=== PATIENT | female | born 1980 | race Caucasian/White ===

== ENCOUNTER 2023-09-23 08:11 | Emergency (ER) | payer BC, SELFPAY ==
--- NOTE | 2023-09-23 08:12 | ED.URI ---
HPI - URI/Sore Throat General Chief Complaint: Upper Respiratory Infection Stated Complaint: Headache, Neck Pain, Fever, Diarrhea, Chills Time Seen by Provider: 09/23/23 08:12 Source: patient Mode of arrival: ambulatory Limitations: no limitations History of Present Illness HPI Narrative: Patient is a 43-year-old female that presents with headache, neck pain, fever, diarrhea and chills since Tuesday. Patient states max ear of 102. Patient has taken [id number] medications with no relief. Patient states headache is only present when she is upright. Denies any neck stiffness. Reports abdominal cramping diarrhea every 2 hours. Denies any blood or mucus with diarrhea. Reports last emesis episode was 6:00 a.m.. Has done 2 at home COVID test that were both negative. Related Data Allergies Allergy/AdvReac Type Severity Reaction Status Date / Time No Known Allergies Allergy Verified 09/23/23 08:14 Review of Systems Review of Systems: All systems reviewed & are unremarkable except as noted in HPI and below Constitutional: Constitutional: Denies body ache(s), Reports chills, Denies fatigue, Reports fever(s), Reports headache(s), Denies malaise and Denies weakness Eyes: Eyes: Denies blurry vision, Denies itchy eyes and Denies loss of vision ENT: Denies otalgia, Reports headache(s), Denies nasal congestion, Reports neck pain, Denies sinus pain and Denies sore throat Cardiovascular: Cardiovascular: Denies chest pain, Denies irregular heart rhythm and Denies dyspnea Respiratory: Respiratory: Denies cough and Denies dyspnea Gastrointestinal: Gastrointestinal: Reports abdominal pain, Reports diarrhea, Reports nausea and Reports vomiting Musculoskeletal: Musculoskeletal: Denies back pain, Denies myalgias and Denies arthralgias Integumentary/Breasts: Skin/Breast: Denies pruritus and Denies rash Neurologic: Denies headache(s), Denies loss of vision and Denies weakness Psychiatric: Psychiatric: Reports no additional psychiatric complaints Endocrine: Endocrine: Denies fatigue Allergic/Immunologic: Allergic/Immunologic: Denies itchy eyes PMFSH Comments At time of signature, agree with nursing past medical, surgical, social and family history. There is no relevant family history pertinent to the presenting complaint. Exam Const: General: cooperative, healthy appearing, comfortable, no acute distress and well nourished Nutritional Appearance: well nourished Orientation/consciousness: patient oriented x3 Limitations: no limitations HENMT: Head: normal to inspection, normocephalic and atraumatic Ears: hearing grossly normal bilaterally, external ears normal, TM's normal bilaterally, EAC's normal and no periauricular adenopathy Face/Nose/Sinus: Normal external nose present, Normal nasal mucous membranes and turbinates present, normal facial exam, sinuses nontender and face symmetric Face and sinus: normal facial exam, sinuses nontender and face symmetric Mouth: Yes Normal oral and palatal mucosa present, Yes lip normal, Yes tongue normal, Yes Normal salivary glands and ducts present, Yes oropharynx normal and Yes moist mucous membranes Teeth and gingiva: dentition normal Throat: posterior oropharynx normal, uvula midline and tonsils absent Eyes: General: appearance normal, both eyes and all related structures Alignment and Position: alignment normal and position normal Periorbital: periorbital findings normal Eyelids: eyelids normal Pupils: Equal, round and reactive pupils present Neck: Neck: normal visual inspection, full ROM, no lymphadenopathy, supple, negative Brudzinski's sign and negative Kernig's sign Chest: Chest palpation & inspection: normal inspection of the chest and normal palpation of entire chest wall Resp: Effort & Inspection: normal respiratory effort and able to speak in complete sentences Auscultation: clear to auscultation bilaterally, no crackles, no rales, no rhonchi and no wheezes Cardio: Rate: regula
[2023-09-23 08:25] VITALS: BP 125/87; PULSE 113; RESP 18; TEMP 36.3; O2SAT 100
== END 2023-09-23 08:57 | disposition home or self-care (01) ==
PROVIDERS: Emergency Provider Nurse Practitioner Family
DX: K52.9 Noninfective gastroenteritis and colitis, unspecified (principal); K21.9 Gastro-esophageal reflux disease without esophagitis; Z86.16 Personal history of COVID-19
CPT/HCPCS: 87804; 99213; G0463

== ENCOUNTER 2024-04-05 08:50 | Emergency (ER) | payer BC, SELFPAY ==
--- NOTE | ~2024-04-05 | XR_ITS ---
Clinical Indication: Cough PA and lateral views of the chest: Comparison: 12/06/2018 Findings: The lungs are clear, without evidence of focal consolidation or pleural effusion. Cardiome diastinal silhouette is within normal limits. Bones and soft tissues are unremarkable. Impression: Normal chest. Reviewed, dictated and finalized at [facility]. Impression: Normal chest.
[2024-04-05 08:56] VITALS: BP 132/80; PULSE 93; RESP 20; TEMP 36; O2SAT 96
[2024-04-05 09:01] VITALS: BP 132/80; PULSE 93; RESP 20; TEMP 36; O2SAT 96
--- NOTE | 2024-04-05 09:02 | ED.URI ---
HPI - URI/Sore Throat General Chief Complaint: Upper Respiratory Infection Stated Complaint: cough Time Seen by Provider: 04/05/24 09:00 Source: patient Mode of arrival: ambulatory Limitations: no limitations History of Present Illness HPI Narrative: 44 y/o female presented for c/o productive cough x11 days. Endorses associated pain to the left mid chest and sob when coughing, vomiting from the forceful cough, and headache. Denies n/v/d/f/c. Taking multiple otc meds without relief. Of note, Pt was seen in ER for GI symptoms 5 days ago. Related Data Allergies Allergy/AdvReac Type Severity Reaction Status Date / Time No Known Allergies Allergy Verified 04/05/24 09:00 Review of Systems Review of Systems: CONSTITUTIONAL: Denies body aches, fever, chills, or sweats. EYES: Denies visual changes, redness, or discharge. ENT: Denies rhinorrhea, congestion, sore throat, or otalgia. CARDIOVASCULAR: Denies chest pain, palpitations, or edema. RESPIRATORY: Reports cough, denies wheezing. GASTROINTESTINAL: Denies abdominal pain, nausea, vomiting, or diarrhea. MUSCULOSKELETAL: Denies back pain, joint pain, or myalgia. NEUROLOGIC: Denies headache, numbness, tingling, or weakness. All systems reviewed & are unremarkable except as noted in HPI and below PMFSH Comments At time of signature, I have reviewed and agree with nursing past medical, surgical, social and family history unless otherwise noted. Please see nursing chart for further information. There is no relevant family history pertinent to the presenting complaint Exam Narrative: GENERAL: midly ill-appearing, in no acute distress. EYES: EOMI. No redness or drainage. Conjunctivae normal. ENT: Mucous membranes pink and moist. No rhinorrhea. TMs normal bilaterally. Throat normal. Uvula midline. NECK: Normal AROM. Supple. CHEST: No respiratory distress. Left anterior wheezing otherwise clear to all thomas. Frequent cough. HEART: Regular rate and rhythm. No murmur appreciated. SKIN: Warm, dry, no rash. Capillary refill normal. Normal skin turgor. NEURO: Alert and oriented x3. Gait steady. Course Course Emergency Course: Patient is aware of diagnosis, understands and agrees to treatment plan. Anticipatory guidance given. Patient agrees to follow-up as directed and is aware of reasons to seek care at the emergency department. Portions of this record may have been created with voice recognition software Level of Care: Express Care Visit Vital Signs Vital signs: Vital Signs Temperature 96.8 F L 04/05/24 08:56 Pulse Rate 93 04/05/24 08:56 Respiratory Rate 20 04/05/24 08:56 Blood Pressure 132/80 04/05/24 08:56 Pulse Oximetry 96 04/05/24 08:56 Oxygen Delivery Room Air 04/05/24 08:56 Temperature 96.8 F L 04/05/24 09:01 Pulse Rate 93 04/05/24 09:01 Respiratory Rate 20 04/05/24 09:01 Blood Pressure 132/80 04/05/24 09:01 Pulse Oximetry 96 04/05/24 09:01 Oxygen Delivery Room Air 04/05/24 09:01 MDM - URI/Sore Throat MDM Narrative Medical decision making narrative: Results of chest x-ray reviewed with patient. Discussed physical exam findings. Reviewed Rxs. Advised supportive measures and signs/symptoms to go to the ER. Pt is appropriate for outpt treatment and f/u. Differential Diagnosis Differential diagnosis: Likely upper respiratory infection, sinusitis, viral infection, bronchitis and other Imaging Data Radiologist's impression: Patient: Cora Sherman : 1980 MR#: [id number] Age: 44 Acct:[id number] Loc: [facility] ADM Date: 04/05/24Attending Dr: Ordering Physician: Hailey Echeverria APRN Date of Service: 04/05/24 Procedure(s): XR chest 2V Accession Number(s): [id number] cc: Hailey Echeverria APRN; Vickie, Angélica CAMACHO~ Clinical Indication: Cough PA and lateral views of the chest: Comparison: 12/06/2018 Findings: The lungs are clear, without evidence of focal consolidat
== END 2024-04-05 09:42 | disposition home or self-care (01) ==
PROVIDERS: Emergency Provider Nurse Practitioner Family; PCP Physician Assistant
DX: J40 Bronchitis, not specified as acute or chronic (principal); K21.9 Gastro-esophageal reflux disease without esophagitis; M32.9 Systemic lupus erythematosus, unspecified; Z86.16 Personal history of COVID-19
CPT/HCPCS: 71046; 99213; G0463

== ENCOUNTER 2025-03-05 08:16 | Emergency (ER) | payer BC, SELFPAY ==
--- OUTSIDE RECORDS SUMMARY | 2025-03-05 08:20 | XMS_ITS | Clinical Summary ---
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 Gender Identity Not on file Sexual Orientation Not on file Plan of Treatment Health Maintenance Due Date Last Done Comments Hepatitis C Virus (HCV) Screening 1980 TdaP Immunization 1980 Hepatitis B Immunization (1 of 3 - 19+ 3-dose series) 02/25/1999 Pap Smear 02/25/2001 Human Papillomavirus (HPV) Immunization (1 - 3-dose SCDM series) 02/25/2007 Cervical Cancer Screening (CCS) 02/25/2010 HPV/Cotest 02/25/2010 SARS-COV-2 Immunization ( season) 2024 11/24/2020, 11/03/2020 Cologuard 02/25/2025 Immunochemical Fecal Occult Blood 02/25/2025 Influenza Immunization (#1) 2025 Colonoscopy 09/21/2028 09/21/2018 Colorectal Cancer Screening 09/21/2028 Respiratory Syncytial Virus (RSV) Immunization (Adult) (1 - 1-dose 75+ series) 02/25/2055 Meningococcal Immunization (ACWY) Aged Out No longer eligible b ased on patient's age to complete this topic Pneumococcal Immunization Combined Aged Out No longer eligible b ased on patient's age to complete this topic Rotavirus Immunization Aged Out No lo nger eligible based on patient's age to complete this topic Procedures Procedure Name Priority Date/Time Associated Diagnosis Comments COLONOSCOPY Routine 09/21/2018 from Last 3 Months or Most Recently Relevant to Health Maintenance Results * COLONOSCOPY (09/21/2018) Pako Padilla DO PROCEDURE/MINOR SURGICAL ORDERA BLES Final Result from Last 3 Months or Most Recently Relevant to Health Maintenance Insurance [facility] Care Teams Farm Technician Relationship Specialty Start Date End Date Provider, Unknown UNKNOWN PCP - General 09/28/18
--- OUTSIDE RECORDS SUMMARY | 2025-03-05 08:20 | XMS_ITS | Clinical Summary ---
Author Organization [place] [id number] [facility] Address [address] [place] [phone] Phone Care Team Providers Care High Man Name Role Phone Angélica Johnston Primary Care Pr ovider Jairo CHAVEZ MD, Dayne Vance [phone] Allergies No known active allergies Medications cetirizine (ZyrTEC) 10 mg capsule Zyrtec PRN Active pantoprazole DR (PROTONIX) 40 mg EC tablet TK 1 T PO QAM 2 11/06/2018 Active buPROPion SR (WELLBUTRIN SR) 100 mg 12 hr tablet Take 100 mg by mouth 2 (two) times a day Active celecoxib (CeleBREX) 200 mg capsule Take 1 capsule (200 mg total) by mouth daily 30 capsule 1 12/13/2018 Active Active Problems Problem Noted Date Diagnosed Date Pain of right hip joint 01/05/2019 Assessment & Plan (01/05/2019 12:05 PM CDT): Patient primarily presenting due to significantly increased pain in the right lateral hip, which has been keeping her up at night. Patient states that she has been using exercise sheet given at last visit regularly, which has not provided benefit. Notable TTP over the right greater trochanter. Appears most compatible with greater trochanteric pain syndrome, although osteoarthritis may be contributing mildly as well. Will order ultrasound-guided right hip Kenalog injection. Patient advised of the risks and benefits of the procedure. Seen with Dr. Gill. Follow-up 4 weeks. Sooner if needed. Bilateral hip pain 12/13/2018 Assessment & Plan (12/13/2018 4:38 PM CDT): Patient notes bilateral lateral hip pain, as well as pain which radiates into the groin. Recent bilateral hip x-ray displayed mild OA. Does also have tenderness to palpation over the bilateral greater trochanter suspicious for greater trochanteric bursitis. Given exercise sheet to do at home. If symptoms persist, consider ultrasound-guided kenalog injection. Polyarthralgia 11/23/2018 Overview (12/12/2018): X-ray 12/06/2018: CXR: Negative; left foot: Mild OA; right foot: Negative; left/right hand: Negative; bilateral hips: Mild hip OA; US 12/01/2018: 1) Mild 2nd and 3rd PIP synovial thickening on examination which will have to be correlated clinically. ALT 30; Positive MATTHEW by dominick only, positive C1 Q, positive PS PT on [facility] Prior blood work which did display positive MATTHEW, low positive ds DNA with subsequent future testing which displayed negative MATTHEW, low positive ds DNA. Patient notes joint pain, swelling which is most predominant in the right thumb/CMC region over the palmar aspect which shooting pains at times in the right lateral epicondyle, as well as pain in the bilateral ankles (L>R) (history of left ankle fracture x3), plantar fascia pain, as well as bilateral hip/groin pain and lesser degree in the remaining joints of the hands. Symptoms are best in the morning do worsen with activity. History of hair loss along the free with the face, malar redness across the face, which is worsened with the sun, eye photosensitivity, paresthesias in the hands at night, dyspnea with minimal exertion less than 1 flight of stairs, all of which are unknown significance. Swelling with tenderness is present across several joints of the bilateral hands. Patient does possess several symptoms and serologies which are concerning for connective tissue disease, including SLE. Also cannot rule out other inflammatory arthritis, such as spondyloarthritis or rheumatoid arthritis at this time. Will further evaluate with appropriate serologies, radiographs, as well as right hand ultrasound. Assessment & Plan (01/05/2019 12:05 PM CDT): Patient notes overall improvement of joint pain, stiffness, swell as swelling in the remaining joints of the hands, ankle/feet since beginning the Celebrex medication. No obvious peripheral synovitis. Will continue Celebrex 200 mg q.d.. Assessment & Plan (12/13/2018 4:31 PM CDT): Patient continues to note joint pain, swelling which is most predominant in the right thumb thenar aspect over the CMC region, bilateral ankles (L>R) (history of left ankle fracture x3), plantar fascia pain, as well as bilateral lateral hip/groin pain. Symptoms best in the morning and do improve with activity. Recent serologies displayed a positive MATTHEW by Dominick only, low positive C1 Q, positive PS PT, but were otherwise unremarkable. Right hand ultrasound did not display any significant inflammatory changes. Bilateral hip x-rays did display some mild osteoarthritis. At this time, do not see any obvious evidence support inflammatory arthritis and/or connective tissue disease. With that said, given her recent ambiguous serologies, early development for inflammatory arthritis and/or connective tissue disease she does fairly remain possible and will continue to monitor for this. We will begin treatment with Celebrex 200 mg q.d. Given her history of GERD symptoms for additional GI protection. Discussed side effects of the medication, including but not limited to GI upset, kidney, and ulcers. Follow-up 4 weeks. Sooner if needed. Seen with Dr. Gill. Assessment & Plan (11/23/2018 5:24 PM CDT): Prior blood work which did display positive MATTHEW, low positive ds DNA with subsequent future testing which displayed negative MATTHEW, low positive ds DNA. Patient notes joint pain, swelling which is most predominant in the right thumb/CMC region over the palmar aspect which shooting pains at times in the right lateral epicondyle, as well as pain in the bilateral ankles (L>R) (history of left ankle fracture x3), plantar fascia pain, as well as bilateral hip/groin pain and lesser degree in the remaining joints of the hands. Symptoms are best in the morning do worsen with activity. History of hair loss along the free with the face, malar redness across the face, which is worsened with the sun, eye photosensitivity, paresthesias in the hands at night, dyspnea with minimal exertion less than 1 flight of stairs, all of which are unknown significance. Swelling with tenderness is present across several joints of the bilateral hands. Patient does possess several symptoms and serologies which are concerning for connective tissue disease, including SLE. Also cannot rule out other inflammatory arthritis, such as spondyloarthritis or rheumatoid arthritis at this time. Will further evaluate with appropriate serologies, radiographs, as well as right hand ultrasound. Follow-up 2 weeks. Sooner if needed. Seen with Dr. Gill. Dyspnea on exertion 11/23/2018 Assessment & Plan (12/13/2018 4:37 PM CDT): Negative cxr. Advised to discuss further with PCP. Assessment & Plan (11/23/2018 5:25 PM CDT): Will check cxr to ensure no ild. May need to follow up with pcp to discuss further and consider possible evaluation with pulmonology. Paresthesias 11/23/2018 Assessment & Plan (12/13/2018 4:36 PM CDT): Intermittent paresthesias in the bilateral hands exacerbated at night. Advised wrist bracing at night. Patient was also advised that she should be further evaluated with neurology, although will discuss with pcp for recommendations. Assessment & Plan (11/23/2018 5:26 PM CDT): Paresthesias in the bilateral hands at night. Will check ultrasound for enlarged median nerve. Consider EMG at next visit. Social History Tobacco Use Types Packs/Day Years Used Date Smoking Tobacco: Never Assessed Comments Unknown Sex and Gender Information Value Date Recorded Sex Assigned at Not on file Legal Sex Female 2:49 PM CDT Gender Identity Not on file Sexual Orientation Not on file Obstetrics History Last Filed Vital Signs Vital Sign Reading Time Taken Comments Blood Pressure 130/74 01/05/2019 11:03 AM CDT Pulse 76 01/05/2019 11:03 AM CDT Temperature - - Respiratory Rate - - Oxygen Saturation - - Inhaled Oxygen Concentration - - Weight 107 kg (236 lb) 01/05/2019 11:03 AM CDT Height - - Body Mass Index - - Plan of Treatment Not on file Insurance [employer] Care Teams High Man Relationship Specialty Start Date End Date Angélica Johnston PA PCP - General Physician Toy Painter 11/07/18 Dayne Gill III, MD [address] [place] [address] Consulting Physician Rheumatology 11/07/18
--- OUTSIDE RECORDS SUMMARY | 2025-03-05 08:20 | XMS_ITS | Referral Summary ---
Author Organization [place] [id number] [facility] Address [address] [place] [phone] Phone Care Team Providers Care Esthetician Makeup Artist Name Role Phone Angélica Johnston Primary Care Pr ovider Jairo CHAVEZ MD, Dayne Vance [phone] Allergies No known active allergies Medications cetirizine [...] correlated clinically. ALT 30; Positive MATTHEW by almita only, positive C1 Q, positive PS PT [...] Recent serologies displayed a positive MATTHEW by Almita only, low positive C1 Q, positive PS [...] on file Sexual Orientation Not on file Last Filed Vital Signs Vital Sign Reading Time Taken Comments Blood Pressure 130/74 01/05/2019 11:03 AM CDT Pulse 76 01/05/2019 11:03 AM CDT Temperature - - Respiratory Rate - - Oxygen Saturation - - Inhaled Oxygen Concentration - - Weight 107 kg (236 lb) 01/05/2019 11:03 AM CDT Height - - Body Mass Index - - Plan of Treatment Not on file Insurance [employer] Care Teams Esthetician Makeup Artist Relationship Specialty Start Date End Date Angélica Johnston PA PCP - General Physician Warehouse Hand 11/07/18 Dayne Gill III, MD [address] [place] [address] Consulting Physician Rheumatology 11/07/18
--- OUTSIDE RECORDS SUMMARY | 2025-03-05 08:20 | XMS_ITS | Encounter Summary ---
Author Organization [facility] Address [address] [place] [id number] Care Team Providers Care Book Shelver Name Role Phone Leola Gannon MD Primary Care Provider [phone] Angélica Johnston Primary Care Provider [phone] Encounter Details Date Type Department Care Team (Late st Contact Info) Description 03/15/2016 Abstract [facility] CONVERSION [address] [place] [address] , Generic ConversionMD Social History Tobacco Use Types Packs/Day Years Used Date Smoking Tobacco: Never Assessed Comments Unknown Sex and Gender Information Value Date Recorded Sex Assigned at Female 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
--- OUTSIDE RECORDS SUMMARY | 2025-03-05 08:20 | XMS_ITS | Clinical Summary ---
Author Organization [facility] Address [address] [place] [id number] Care Team Providers Care Teacher Hearing Impaired Name Role Phone Angélica Johnston Primary Care Provider [phone] Allergies No known active allergies Medications pantoprazole EC 40 MG tablet Take 1 tablet (40 mg total) by mouth daily before supper. Active HYDROcodone-acetami nophen 5-325 MG tabletIndications:A cute Pain < 3 Day Supply,Acute Pain < 7 Day Supply Take 1-2 tablets by mouth every 6 (six) hours as needed for Pain. Indications: Acute Pain < 3 Day Supply, Acute Pain < 7 Day Supply 24 tablet 1 Active dicyclomine (BENTYL) 20 MG tablet Take 1 tablet (20 mg total) by mouth every 6 (six) hours as needed (abd pain or cramping). 20 tablet 4 Active ondansetron (ZOFRAN-ODT) 4 MG disintegrating tablet Take 1 tablet (4 mg total) by mouth every 6 (six) hours as needed for Nausea. 20 tablet 4 Active Active Problems Problem Noted Date Diagnosed Date Perirectal abscess 06/22/2021 Social History Tobacco Use Types Packs/Day Years Used Date Smoking Tobacco: Some Days Cigarettes Smokeless Tobacco: Never Tobacco Cessation:Counseling Given: Yes Comments:Only when I drink Alcohol Use Standard Drinks/Week Comments Yes 10 (1 standard drink = 0.6 oz pu re alcohol) Education Answer Date Recorded What is the highest level of school you have completed or the highest degree you have received? 12th grade 06/23/2021 Comments No Sex and Gender Information Value Date Recorded Sex Assigned at Female 06/23/2021 12:43 AM MACHINE LEARNING INTERN Legal Sex Female 7:09 PM CDT Gender Identity Female 06/23/2021 12:43 AM MACHINE LEARNING INTERN Sexual Orientation Straight 06/23/2021 12 :43 AM MACHINE LEARNING INTERN Last Filed Vital Signs Vital Sign Reading Time Taken Comments Blood Pressure 126/66 03/31/2024 12:24 PM CDT Pulse 89 03/31/2024 12:24 PM CDT Temperature 37.2 C (98.9 F) 03/31/2024 12:24 PM CDT Respiratory Rate 18 03/31/2024 12:24 PM CDT Oxygen Saturation 98% 03/31/2024 12:24 PM CDT Inhaled Oxygen Concentration - - Weight 105.7 kg (233 lb) 03/31/2024 10:05 AM CDT Height 165.1 cm (5' 5) 03/31/2024 10:05 AM CDT Body Mass Index 38.77 03/31/2024 10:05 AM CDT Plan of Treatment Health Maintenance Due Date Last Done Comments Cervical Cancer Screening Pa p Smear (Age 30 to 64) Every 3 Years 1980 Annual Physical 02/25/1983 Hepatitis C 02/25/1998 DTaP, Tdap and Td Vaccines ( 1 - Tdap) 02/25/1999 Hepatitis B Vaccines (1 of 3 - 19+ 3-dose series) 02/25/1999 Pneumococcal Vaccine: Pediatrics (0 to 5 Years) and At-Risk Patients (6 to 49 Years) (1 of 2 - PCV) 02/25/1999 HPV Vaccines (1 - 3-dose SCD M series) 02/25/2007 Cervical Cancer Screening Pa p with HPV Testing (Age 30 to 64) Every 5 Years 02/25/2010 Cervical Cancer Screening wi th HPV 02/25/2010 Mammogram Screening 2020 COVID-19 Vaccine (3 - 2023-2 5 season) 2024 11/24/2020, 11/03/2020 Meningococcal B Vaccine Aged Out No l onger eligible based on patient's age to complete this topic Meningococcal Vaccine Aged Out No jeet darling eligible based on patient's age to complete this topic RSV Immunizations Under 20 Months Aged Out No longer eligible b ased on patient's age to complete this topic Goals Goal Patient Goal Type Associated Problems Recent Progress Patient-Stated? Author Health - patient able to perform ADLs independently General No Mallory Hartmann, RN Insurance [facility] [place] Advance Directives * Full Code (Latest Code Status on File) Date Activated Date Inactivated Comments 06/22/2021 11:45 PM 06/23/2021 4:41 PM Care Teams Teacher Hearing Impaired Relationship Specialty Start Date End Date Angélica Johnston PA PCP - General PHYSICIAN STENCILING MACHINE TENDER 06/22/21
[2025-03-05 08:25] VITALS: BP 119/80; PULSE 71; RESP 16; TEMP 36.3; O2SAT 100
--- NOTE | 2025-03-05 08:43 | ED.URI ---
HPI - URI/Sore Throat General Chief Complaint: Upper Respiratory Infection Stated Complaint: Fever / Vomiting Time Seen by Provider: 03/05/25 08:45 Source: patient and RN notes reviewed Mode of arrival: ambulatory Limitations: no limitations History of Present Illness HPI Narrative: 45-year-old female presents with concern for hoarse voice, sore throat and throat ?swelling? for 7 days. Reports in the last 3 days she started having nausea, vomiting, fever, and chills. She had diarrhea today. She has been taking [id number] medications such as cold medicines, been using tea and cough drops without relief. She reports she usually vomits in the morning, today she has vomited several times. She denies abdominal pain. MD elicited complaint: fever and sore throat Related Data Allergies Allergy/AdvReac Type Severity Reaction Status Date / Time No Known Allergies Allergy Verified 03/05/25 08:31 Review of Systems Review of Systems: CONSTITUTIONAL: Reports malaise, chills, fever. EYES: Denies visual changes, redness, or discharge. ENT: Denies rhinorrhea, congestion, sinus pain, otalgia. Reports sore throat. CARDIOVASCULAR: Denies chest pain, palpitations, or edema. RESPIRATORY: Denies cough. Denies dyspnea. GASTROINTESTINAL: Denies abdominal pain. Reports nausea, vomiting, diarrhea SKIN: Denies rash or itching. MUSCULOSKELETAL: Denies myalgia. NEUROLOGIC: Denies headache. All systems reviewed & are unremarkable except as noted in HPI and below [facility] Comments At time of signature, agree with nursing past medical, surgical, social and family history. There is no relevant family history pertinent to the presenting complaint Exam Narrative: GENERAL: Nontoxic-appearing and in no acute distress. HEAD: Normocephalic EYES: PERRLA, conjunctivae clear ENT: Nares clear. Mucous membranes moist. TM pearly james with dull light reflex bilaterally; no tragal tenderness. Oropharynx erythematous without lesions. Tonsils not enlarged and without exudate, no drooling, no hoarseness, no trismus, uvula midline. NECK: Supple. No lymphadenopathy CHEST: Clear to auscultation, breath sounds equal. No wheezing, rhonchi, rales, or stridor. No respiratory distress, speaks in full sentences. HEART: Regular rate and rhythm. No murmur heard. ABD: Soft, nontender, normal bowel sounds SKIN: Warm, dry, no rash. NEURO: Alert and oriented x3. PSYCH: Normal mood and affect Course Course Emergency Course: Patient is aware of diagnosis, understands and agrees to treatment plan. Anticipatory guidance given. Patient agrees to follow-up as directed and is aware of reasons to seek care at the emergency department. Portions of this record may have been created with voice recognition software Level of Care: Express Care Visit Vital Signs Vital signs: Vital Signs Temperature 97.3 F L 03/05/25 08:25 Pulse Rate 71 03/05/25 08:25 Respiratory Rate 16 03/05/25 08:25 Blood Pressure 119/80 03/05/25 08:25 Pulse Oximetry 100 03/05/25 08:25 Temperature 97.3 F L 03/05/25 08:25 Pulse Rate 71 03/05/25 08:25 Respiratory Rate 16 03/05/25 08:25 Blood Pressure 119/80 03/05/25 08:25 Pulse Oximetry 100 03/05/25 08:25 Reviewed. MDM - URI/Sore Throat MDM Narrative Medical decision making narrative: Differential diagnosis considered: Dior virus, strep pharyngitis, allergic rhinitis, upper respiratory tract infection, sinusitis, rhinosinusitis, nasopharyngitis. viral pharyngitis, otitis media, otitis externa, pneumonia, bronchitis, viral cough syndrome, viral syndrome, and influenza. Exam findings show no acute concerns or changes; patient is non-toxic appearing and is in no distress. Patient is appropriate for outpatient treatment and follow-up. Lab Data Attestation: I reviewed the patient's lab results. Critical Care Time Critical Care Time Critical Care Time: No Discharge Plan Discharge Clinical Impression: Viral infection Patient Disposition: Home Condition: Stable Instructions: Viral Syndrome (ED) Additional Instructions: Your rapid strep swab was negative today at [facility]. A throat culture will be sent to the laboratory for further testing. If the test is positive, you will receive a phone call within 48 hours and an appropriate antibiotic will be initiated at that time. Your symptoms are likely due to a viral illness, which is not treated with antibiotics. Viral symptoms can be present for up to a few weeks. -Alternate Tylenol and Motrin per package directions for fever or pain. -Eat and drink things that are easy to swallow, like tea or soup, or popsicles to suck on. -Oral rinses such as: Salt water gargles and/or may use topical anesthetic (eg. Chloraseptic spray) or lozenges to relieve dryness or throat pain). -Frequent hand washing or hand human resources admin is one of the best ways to prevent spread of infection. -Stay hydrated. Take small sips of fluid containing electrolytes frequently. You should go to the hospital if you experience return of persistent nausea and vomiting that does not resolve and does not allow you to tolerate any food or fluids, persistent fevers for greater than 2-3 more days, increasing abdominal pain that persists despite medications, persistent diarrhea, dizziness, syncope (fainting), or for any other concerns. -Follow up with primary care provider in 2-3 days if condition is not improving; or seek ER visit if you have trouble breathing, cannot drink enough fluids, have muffled voice, difficulty opening your mouth, or severe swelling. Patient Language: Albanian Prescriptions: New ondansetron 4 mg tablet,disintegrating 4 mg PO Q8H PRN (Reason: nausea and vomiting) Qty: 10 0RF Follow-up/Referrals: Vickie,DOUG Lindsay [Primary Care Provider] - Time of Disposition: 09:18
[2025-03-05] MEDS: ONDANSETRON HCL ODT 4 MG TABLET PO (09:04)
[2025-03-05 09:09] LABS: EDSTREPNEGPOS1 Negative (Negative)
[2025-03-05 09:14] LABS: EDCOVIDSCREEN Negative (Negative); EDINFLUASCREEN Negative (Negative); EDINFLUBSCREEN Negative (Negative)
[2025-03-05 09:20] VITALS: BP 105/81; PULSE 71; O2SAT 100
== END 2025-03-05 09:30 | disposition short-term general hospital (02) ==
PROVIDERS: Emergency Provider Nurse Practitioner; PCP Physician Assistant
DX: B34.9 Viral infection, unspecified (principal); Z20.822 Contact with and (suspected) exposure to COVID-19
CPT/HCPCS: 87081; 87426; 87804; 87880; 99213; A9270; G0463